=== PATIENT | male | born 1970 | race Caucasian/White ===

== ENCOUNTER 2024-04-21 15:51 | Emergency (ER) | payer OTHER ==
[2024-04-21] MEDS: Lidocaine 1% 5 ML VIAL INJECT ONE (16:10)
[2024-04-21] MEDS: Diphtheria,Pertussis(Acell),Tetanus Vaccine 0.5 ML Syringe IM ONE (16:19)
[2024-04-21] MEDS: Bacitracin Oint 1 GM U/D Packet TOP ONE (16:25)
== END 2024-04-21 16:30 | disposition home or self-care (01) ==
LOC: LB.ED 15:51
DX: S60.451A Superficial foreign body of left index finger, initial encounter (principal); Z23 Encounter for immunization; W45.8XXA Other foreign body or object entering through skin, initial encounter
CPT/HCPCS: 90471; 90715; 99283-25